=== PATIENT | male | born 1990 | race Caucasian/White ===

== ENCOUNTER 2024-01-23 16:55 | Emergency (ER) | payer OTHER, MEDICAID, SELFPAY ==
[2024-01-23 17:05] VITALS: BP 140/87
--- NOTE | 2024-01-23 17:27 | ED.GENMED ---
History of Present Illness
<Dl Mcdonough PA-C - Last Filed: 01/23/24 22:37>
General
Chief Complaint: Crisis Evaluation
Source: patient
Time Seen by Provider: 01/23/24 17:10
History of Present Illness
History of Present Illness:
33-year-old male with past medical history of schizophrenia and substance abuse presenting to the emergency department with EMS/police after he was 302 by his brother. Patient was reportedly getting kicked out of his house by his brother but
patient was refusing to leave and thus 302 was filed. Patient states no SI/HI/auditory visual hallucinations. Denies any current drug or alcohol use. He states he has been 302 in the past and has needed inpatient treatment. He reports currently
not taking any medications. No physical complaints at this time.
Past History
<Dl Mcdonough PA-C - Last Filed: 01/23/24 22:37>
Past History
ED Past Medical History: Psychiatric (Substance abuse)
ED Past Surgical History: None
Social History
Tobacco: Smoker
Alcohol: Occasional
Drug: Marijuana
Personal: Single
Living: with family
Employment: Employed
Review of Systems
<Dl Mcdonough PA-C - Last Filed: 01/23/24 22:37>
Review of Systems
All Other Systems: ROS reviewed and negative except as documented in HPI and ROS
Phy Exam
<Dl Mcdonough PA-C - Last Filed: 01/23/24 22:37>
Physical Exam
Physical Exam:
GENERAL: Alert , in no apparent distress
EYE: conjunctiva clear
NECK: Supple
ENT: o/p clr, mmm.
CARDIAC: Regular rate and rhythm
LUNGS: Clear breath sounds bilaterally, no acute respiratory distress, no wheezes/rales/rhonchi
NEUROLOGICAL: Alert and oriented
SKIN: Warm and dry, skin intact.
MUSCULOSKELETAL: well perfused.
PSYCH: Normal and appropriate interaction.
Scores
<Dl Mcdonough PA-C - Last Filed: 01/23/24 22:37>
Heart Failure Risk
Heart Failure Risk Score: Not Applicable
Heart Score for Chest Pain Patients
STEMI patient?: Not applicable
Withdrawal Assessment of Alcohol
Withdrawal Assessment Completed?: Not applicable
Course
<Dl Mcdonough PA-C - Last Filed: 01/23/24 22:37>
Orders/Labs/Results
Orders:
Orders
01/23/24 17:19
Crisis Consult Urgent
Reason for Consult: 302
01/23/24 17:45
Complete Blood Count/With Diff Urgent
Comprehensive Metabolic Panel Urgent
01/23/24 17:46
Drug Screen, Urine [Urine Drug Abuse Screen] Urgent
Date Specimen was Collected: 01/23/24
Time Specimen was Collected: 17:26
01/23/24 22:22
Lorazepam [Ativan] 1 mg PO NOW STA
Abnormal Lab Results
01/23/24
17:45
RBC 4.47 L 10^6/uL
(4.70-6.10)
Hct 38.6 L %
(39.0-52.0)
Glucose 107 H mg/dl
(70-99)
01/23/24 17:45
01/23/24 17:45
Vital Signs
Initial and Last Documented VS:
Initial Vital Signs
Temp Pulse Resp BP Pulse Ox
98.5 F 89 18 140/87 95
01/23/24 17:05 01/23/24 17:05 01/23/24 17:05 01/23/24 17:05 01/23/24 17:05
Last Documented Vital Signs
Temp Pulse Resp BP Pulse Ox
98.5 F 89 18 140/87 95
01/23/24 17:05 01/23/24 17:05 01/23/24 17:05 01/23/24 17:05 01/23/24 17:05
<Blaine Newton MD - Last Filed: 01/23/24 20:58>
Orders/Labs/Results
Orders:
Orders
01/23/24 17:19
Crisis Consult Urgent
Reason for Consult: 302
01/23/24 17:45
Complete Blood Count/With Diff Urgent
Comprehensive Metabolic Panel Urgent
01/23/24 17:46
Drug Screen, Urine [Urine Drug Abuse Screen] Urgent
Date Specimen was Collected: 01/23/24
Time Specimen was Collected: 17:26
01/23/24 22:22
Lorazepam [Ativan] 1 mg PO NOW STA
Abnormal Lab Results
01/23/24
17:45
RBC 4.47 L 10^6/uL
(4.70-6.10)
Hct 38.6 L %
(39.0-52.0)
Glucose 107 H mg/dl
(70-99)
01/23/24 17:45
01/23/24 17:45
Vital Signs
Initial and Last Documented VS:
Initial Vital Signs
Temp Pulse Resp BP Pulse Ox
98.5 F 89 18 140/87 95
01/23/24 17:05 01/23/24 17:05 01/23/24 17:05 01/23/24 17:05 01/23/24 17:05
Last Documented Vital Signs
Temp Pulse Resp BP Pulse Ox
98.5 F 89 18 140/87 95
01/23/24 17:05 01/23/24 17:05 01/23/24 17:05 01/23/24 17:05 01/23/24 17:05
<Dl Mcdonough PA-C - Last Filed: 01/23/24 22:37>
MDM/Problems Addressed
Differential Diagnosis Includes:
Psychiatric illness, family dispute, no concern for acute intoxication
MDM/Problems Addressed:
33 y/o male presenting to ER after 302 filed by family. History of schizophrenia in past. Does not appear to have inisght to illness. Hemodynamically stable and no signs of acute phsycial concerns. Psych consult ordered. Labs placed
<Dl Mcdonough PA-C - Last Filed: 01/23/24 22:37>
*Pulse Oximetry
Patient hypoxic: no
*Critical Care Note
Total Time (30-74mins, 75-104mins- exclusive of procedures): Not Applicable
Data Reviewed
Review of Other/Old Records Reveals: Labs and Records
Source: patient, records and ambulance crew
<Dl Mcdonough PA-C - Last Filed: 01/23/24 22:37>
Patient Management
Escalation/DeEscalation of care consider admission/obs:
Patient's 302 was upheld and he will be disposition to inpatient per crisis staff
ED Attending Note
<Dl Mcdonough PA-C - Last Filed: 01/23/24 22:37>
-
Portions of this chart may have been created with voice recognition software.� Occasional wrong word or��sound alike� substitutions may have occurred due to the inherent limitations of voice recognition software.
<Blaine Newton MD - Last Filed: 01/23/24 20:58>
ED Attending Note
Patient seen and examined by attending physician: Yes
ED Attending Note:
I have seen and evaluated the patient with a [id number] encounter. I have spoken to the advance practicer provider and involved in the medical history, the physical exam, medical decision making.
Evaluation and management service: agree unless noted differently below.
Results interpretation: agree unless noted differently below.
Focused HPI: 33-year-old male with past medical history of polysubstance use, schizophrenia who presents to the emergency room brought in on a 302 filed by his brother. According to 302 report patient has had erratic behavior, paranoid delusions,
suicidal threats including drinking bleach. Patient is calm and cooperative here, does seem somewhat paranoid says that his family is 'evil' and that everyone is out to get him.
Physical exam: Awake alert. Calm and cooperative here. Vital signs normal.
Medical Decision Makin-year-old male brought in on a 302 for erratic behavior, paranoid delusions, suicidal threats. He was seen by telepsychiatry and 302 was upheld. Will monitor pending inpatient psychiatric placement. He did have basic
screening labs sent off which were unremarkable and he is medically cleared for placement.
Discharge Plan
Departure
Patient Disposition: Psych Facility
Date of Disposition: 01/23/24
Time of Disposition: 20:58
Discharge Problem:
Paranoid delusion, Threatening suicide
Prescriptions:
No Action
No Current Medications
0
Referrals:
Renuka Granados MD [Family Provider] -
Interventions
Interventions:
*Risk Screen - Suicide Last Done: 01/23/24 19:08
*General Assessment Last Done: 01/23/24 17:05
*Neglect/Abuse Screening Last Done: 01/23/24 17:05
*ED COVID-19 Vaccine History Last Done: 01/23/24 17:10
ED-Psychological Assessment Last Done: 01/23/24 17:05
Discharge Date and Time
Print Language: IVORIAN
[2024-01-23 17:51] LABS: % Basophils 0.7 % (0-2); % Eosinophils 1.3 % (0-6); % Immature Granulocytes 0.2 % (0-0.5); % Lymphocytes 30.9 % (20.5-51.1); % Monocytes 7.2 % (1.7-9.3); % Neutrophils 59.7 % (42.2-75.2); Absolute Eosinophils 0.1 10^3/uL (0-0.7); Absolute Lymphocytes 1.9 10^3/uL (1.2-3.4); Absolute Monocytes 0.4 10^3/uL (0.1-0.6); Absolute Neutrophils 3.7 10^3/uL (1.4-6.5); Hematocrit 38.6 % (39.0-52.0); Hemoglobin 13.7 g/dL (13.0-18.0); Mean Corp Hgb Conc. 35.5 g/dL (33.0-37.0); Mean Corpuscular Hgb 30.6 pg (27.0-31.0); Mean Corpuscular Volume 86.4 fL (80.0-94.0); Mean Platelet Volume 9.4 fL (7.4-10.4); Nucleated Red Blood Cells % 0 % (-); Platelet Count 211 10^3/uL (130-400); Red Blood Cell Count 4.47 10^6/uL (4.70-6.10); Red Cell Dist. Width 11.7 % (11.5-14.5); White Blood Cell Count 6.1 10^3/uL (4.8-10.8)
[2024-01-23 18:12] LABS: ALT (SGPT) 24 U/L (0-50); AST (SGOT) 34 U/L (17-59); Albumin 4.6 g/dl (3.5-5.0); Alkaline Phosphatase 70 U/L (38-126); Blood Urea Nitrogen 9 mg/dl (9-20); Calcium 9.8 mg/dl (8.4-10.2); Carbon Dioxide 29 mmol/L (22-30); Chloride 99 mmol/L (98-107); Glucose 107 mg/dl (70-99); Potassium 4.1 mmol/L (3.5-5.1); Sodium 138 mmol/L (135-145); Total Bilirubin 0.8 mg/dl (0.2-1.3); Total Protein 7.5 g/dl (6.3-8.2); eGFR > 60.00
[2024-01-23 18:30] LABS: Amphetamines Negative (Negative); Barbiturates Negative (Negative); Benzodiazepines Negative (Negative); Buprenorphine Negative (Negative); Cocaine Negative (Negative); Marijuana Negative (Negative); Methadone Negative (Negative); Methamphetamines Negative (Negative); Opiates Negative (Negative); Phencyclidine Negative (Negative); Tricyclic Antidepressants Negative (Negative)
[2024-01-23] MEDS: ATIVAN 1 MG PO (22:25)
== END 2024-01-24 03:40 ==
LOC: EMR 16:55
PROVIDERS: Physician Assistant Medical; EMERGENCY PHYSICIAN Emergency Medicine; FAMILY PHYSICIAN Family Medicine
DX: F20.9 Schizophrenia, unspecified (principal); F19.90 Other psychoactive substance use, unspecified, uncomplicated; R45.851 Suicidal ideations; F22 Delusional disorders; F17.200 Nicotine dependence, unspecified, uncomplicated
CPT/HCPCS: 99285; 80053; 80306; 85025